=== PATIENT | male | born 1980 | race Caucasian/White ===

== ENCOUNTER → 2016-09-29 | Outpatient (CLI) | payer OTHER ==
[~2016-09-29] MED LIST: AUGMENTIN 875875 MG PO; DIFLUCAN200 MG PO; ONDANSETRON HCL4 M2 PO; PERCOCET 5-3251 EACH; PROMETHAZINE HC25 M2; TRAMADOL 50 MG50 MG PO
== END ==
LOC: RAD 02:04
DX: K63.1 Perforation of intestine (nontraumatic) (principal); Z93.3 Colostomy status

== ENCOUNTER 2016-10-06 06:42 | Inpatient (IN) | payer OTHER ==
[~2016-10-06] VITALS: Ht 175.3 cm; Wt 79.8 kg
[2016-10-06] VITALS (9 sets, daily range): BP systolic 134–164; BP diastolic 83–105
--- NOTE | ~2016-10-06 | O ---
[facility] [place] [address] OPERATIVE REPORT Name: BRI LARUEN Room #: 412-P ADM IN M.R.#: [id number] Admission: 10/06/16 Attend Phys: Ja La MD, Discharge: Date of : 84 Report #: [id number] THIS REPORT FOR: //name// CC: Zoya La DATE OF SERVICE: 10/06/2016 PREOPERATIVE DIAGNOSES: 1. Colostomy in place with desire for reversal. 2. Suspected intra-abdominal adhesions. POSTOPERATIVE DIAGNOSES: 1. Colostomy in place with desire for reversal. 2. Dense pelvic adhesions. 3. Incarcerated parastomal hernia. 4. Incisional ventral hernia. PROCEDURES PERFORMED: 1. Diagnostic laparoscopy converted to exploratory laparotomy. 2. Extensive lysis of adhesions lasting 135 minutes. 3. Segmental small bowel resection with [id number] functional end-to-end stapled reanastomosis. 4. Proctectomy. 5. Colostomy reversal with a stapled low colorectal anastomosis. 6. Mobilization of the splenic flexure. 7. Suture repair of an incarcerated parastomal hernia. 8. Suture repair of an incisional ventral hernia. 9. Placement of a topical wound VAC device (Prevena). 10. The Modifier 22 procedure for extreme difficulty of procedure secondary to the patient's significant low pelvic adhesions necessitating a greater than 2-hour lysis of adhesions after conversion to an open procedure as well as causing the necessity of a segmental bowel resection and a proctectomy as well as the low reanastomosis. This was in a male pelvis that was very narrow and difficult to access and caused the total operative time to be 3-1/2 hours as opposed to the usual 1- to 1-1/2-hour procedure. SURGEON: Ja La M.D. AUDIO VISUAL PROJECT MANAGER: Melecio Steven M.D. SECOND LEAD NEURODIAGNOSTIC TECHNOLOGIST: JIMMY Mariee. ANESTHESIA: General endotracheal anesthesia. ESTIMATED BLOOD LOSS: [address] [address] OPERATIVE REPORT Name: BRI LAUREN Room #: 412-P [facility] IN M.R.#: [id number] Admission: 10/06/16 Attend Phys: Ja La MD, Discharge: Date of : 84 Report #: [id number] COMPLICATIONS: None appreciated. SPECIMENS: 1. Segment of small bowel to pathology (mid ileum). 2. Rectum to pathology. 3. Colostomy to pathology. INDICATIONS: The patient is a 36-year-old male who is slightly greater than 6 months status post emergent exploratory laparotomy with sigmoid colectomy and Gilson's procedure for perforated sigmoid diverticulitis. The patient has done exceptionally well postoperatively, underwent a colonoscopy, both through his colostomy as well as up his rectal stump, with only a few diverticula right inside the colostomy as well as a firm stool ball in the rectal stump. The patient underwent a barium enema recently, which showed a normal rectal stump as well and underwent a full bowel prep with copious, clear output from his colostomy and tap water enemas via his rectum that ran clear. Indication therefore was for colostomy reversal with findings as indicated above. DESCRIPTION OF PROCEDURE: After explaining the risks, benefits and alternatives of the procedure with the patient in detail in the preoperative holding area and obtaining written consent, the patient was brought to the operating room and placed supine on the operating room table. After conducting a thorough timeout procedure verifying correct patient and procedure, the patient was given general endotracheal anesthesia. Once adequate anesthesia was obtained, his SCDs were hooked up to the pneumatic compression device, and he was given a preoperative dose of antibiotics in line with the SCIP protocol. The patient was then positioned in the low lithotomy position with his legs in the Yellofins stirrups, and I proceeded to use a 2-[address] a pursestring suture around his colostomy to prevent intra-procedural contamination. The patient's abdomen was then prepped and draped in the standard surgical sterile fashion and a Ray-Kathleen was placed over the colostomy with a 4 x 6 inch Tegaderm placed over the top of that. I began the procedure by anesthetizing the skin in the right upper quadrant in a midclavicular line in immediate subcostal location with 5 mL of 0.5% Marcaine with epinephrine. I created a small skin saul using #15 bladed scalpel at this location. A 5-mm Visiport was placed over 0 degree 5-mm laparoscope and was introduced through this incision site. Once intraabdominal placement was verified visually, the obturator for the trocar and laparoscope were both removed, and the abdomen was insufflated to 15 mmHg using carbon dioxide gas. The laparoscope was changed to a 5-mm 30-degree laparoscope, which was reintroduced through this trocar. The entire abdomen was evaluated to ensure no injury upon entry. We saw adhesions throughout the abdominal domain. However, the right lateral abdomen in the subxiphoid regions was devoid of adhesions. I therefore placed additional 5-mm trocars in the extreme right flank at the [address] [address] OPERATIVE REPORT Name: BRI LAUREN Room #: 412-P ADM IN Sophy#: [id number] Admission: 10/06/16 Attend Phys: Ja La MD, Discharge: Date of : 84 Report #: [id number] line lateral to the umbilicus and in the subxiphoid location. Both trocars were placed under direct vision after anesthetizing the skin at each location with 5 mL of 0.5% Marcaine with epinephrine and I created small skin nicks using #15 bladed scalpel. I now carried out a laparoscopic lysis of adhesions using EndoShears and Harmonic scalpel to skeletonize posterior aspect of the anterior abdominal wall. Through the course of taking down these adhesions, we stayed well away from bowel at all times. We saw evidence of an incisional ventral hernia approximately 2 x 2 cm in dimension around the umbilicus. Gentle traction was placed on the tissue around the colostomy site, and I was able to easily reduce a large amount of omentum incarcerated within an incisional ventral hernia in a parastomal location. We now placed the patient in steep Trendelenburg position with the left side elevated, and I proceeded to attempt to sweep the small bowel into the upper abdomen. One loop of small bowel was intimately plastered to the pelvis, likely to the staple line from the rectum, and numerous attempts at freeing this were performed with significant difficulty. Ultimately EndoShears were used to take down adhesions where it was welded to the pelvis, and the small bowel was extremely denuded at this location, but no overt enterotomy was made, and I was able to sweep the bowel into the upper abdomen. Evaluation of the rectal stump at this location showed that it was exquisitely plastered to the sacral promontory in the cul-de-sac, and after half an hour of evaluation, I was unable to elevate it whatsoever. Dr. Steven broke scrub and went down below and proceeded to use the rectal EEA sizers to intubate the rectal stump, and we were unable to elevate it whatsoever to perform an appropriate anastomosis. At this juncture, after full evaluation, I made the decision to convert to an open procedure, and using a #10 bladed scalpel, I created a longitudinal midline wound following his old incision site. Electrocautery was used to carry this down through skin and subcutaneous tissues to ensure hemostasis. Once I arrived upon the fascia, a finger was placed through the hernia defect, and I opened the entire fascial wound in a controlled fashion to prevent injury to the underlying structures from thermal burn. This allowed me to open the entire midline wound for full evaluation. At this juncture, I proceeded to run the small bowel from the ligament of Treitz distally in a [id number] fashion, taking down all interloop adhesions. We saw no evidence of pathology whatsoever with the exception of the one segment that was plastered low in the pelvis that was located at the mid ileum. As this was extremely denuded, thickened and firm with a narrowed lumen by palpation, I did elect to resect this. I made a window on either side of the mesentery using electrocautery and proceeded to transect the bowel using 2 separate firings of the GIAN blue load 75-mm stapler. The mesentery was removed with LigaSure impact device for hemostasis. The bowel loops were then aligned in a ftgg-jh-dlki functional end-to-end fashion, and a single suture of 3-0 PDS was placed on the antimesenteric aspects to hold them in alignment. Sterile blue towels were placed around the loops of bowel and I resected the antimesenteric corners of the staple lines with curved Kim scissors. Another firing of the GIAN blue load 75-mm stapler was carried out by passing each limb of the stapler down the enterotomies, clamping and firing to [facility] [address] [place] [address] OPERATIVE REPORT Name: BRI LAUREN Room #: 412-P [facility] IN [facility].#: [id number] Admission: 10/06/16 Attend Phys: Ja La MD, Discharge: Date of : 84 Report #: [id number] create the anastomosis. The common enterotomy was elevated with Allis clamps and was closed using a TX blue load 60 stapler. A #10 bladed scalpel was used to remove the excess anastomotic tissue. Finger palpation of the anastomosis showed it to be widely patent. I then placed a single suture of 3-0 PDS in the crotch of the staple line to act as an anti-tension stitch, and then utilized an additional 3-0 PDS suture in a standard running fashion to close the mesenteric defect. I did elect to oversew the TX staple line using several interrupted 3-0 PDS sutures in standard Lembert fashion. The bowel was then placed back in the abdomen; it was run one additional time in its entirety to ensure no pathology. We then turned our attention to evaluation of the rectal stump. We carried out an additional extensive lysis of adhesions to fully elevate the rectal stump using a combination of electrocautery and Metzenbaum scissor dissection. Ultimately, the staple line was able to be identified and elevated, and I was able to gain circumferential control of the rectal stump. There were so many adhesions that it caused the rectal stump to fold back on itself in an accordion style pattern, but at the completion of the lysis of adhesions, we had a straight rectal stump. Unfortunately, the distal aspect of the prior staple line on the proximal rectal stump was dusky, indurated and thickened, which was unsuitable for an anastomosis. As this was already below the sacral promontory, we were unable to perform an anastomosis on the anterior aspect of the rectum, and as such, I did elect to perform a proctectomy of this unsatisfactory proximal rectum. The perirectal mesentery was scored along its lateral aspects with electrocautery, and I was able to easily created a window in the mesorectum using a finger to pass through behind. I then utilized the contour stapler with a green load to staple off the rectum approximately 5 cm superior to the pelvic inlet. The LigaSure Impact device was used to transect the mesorectum of the resection specimen for hemostasis, and it was passed off the field. We had complete hemostasis at this juncture. Both the left and right ureters were identified, evaluated and uninjured throughout. The patient was exquisitely dehydrated at the outset of the procedure. However, he made significantly improved urine that was light yellow and clear throughout the case. Now that I had performed the proctectomy, I proceeded to take down the colostomy. Electrocautery was used to create an elliptical incision transversely around the colostomy site after removing the Tegaderm and Ray-Kathleen. Electrocautery was used to carry this incision down through skin and subcutaneous tissues for hemostasis until I arrived upon the level of the fascia. As the patient had a moderate-sized parastomal hernia, I was able to easily free the colostomy from its fascial attachments and delivered it through the wound. At this juncture, I cleaned off the colon proximal to the obvious diverticula and denuded colostomy and used electrocautery to create a window right next to colon. The mesentery at this location was taken down with LigaSure impact device. I then used the auto pursestring suture device to clamp around the colon at the desired anastomotic location. Curved Lowber scissors were [facility] [address] [place] [address] OPERATIVE REPORT Name: BRI LAUREN Room #: 412-P ADM IN [facility]ophy#: [id number] Admission: 10/06/16 Attend Phys: Ja La MD, Discharge: Date of : 84 Report #: [id number] used to resect the colostomy and was passed off the field. Allis clamps were now used to hold open the end of the colon, and it was sized using the EEA sizers. This showed that a 29 EEA anvil would be appropriate for this colon. I therefore placed the 29 EEA anvil into the open end of bowel and tied down the suture from the auto pursestring suture device, which held the colon tissue tight around the anvil post. The tissue appeared healthy with no significant fatty tissue overlying the actual colon at this juncture. The bowel was then placed back in the abdomen, and we evaluated whether we had enough length to reach the rectal stump as it was now going to be a low coloproctostomy. While it would reach at this location it was done so under signification tension, and as such, I did elect to perform a full mobilization of the splenic flexure. Electrocautery was used to take down the distal transverse colon around to the descending colon along the white line of Toldt. This allowed me to have the splenic flexure drop down to the mid abdomen with significant laxity of the bowel to where it would actually overlap the rectal stump so that when we performed the stapled anastomosis, it was done so under no tension whatsoever. Dr. Steven now proceeded to go back down below where he proceeded to size the rectal stump again using the EEA sizers. The patient's rectum would now handle a 29 EEA sizer with ease all the way to the distal aspect of the staple line. The rectal tissue at this juncture appeared completely healthy with no induration, ischemia or denuded tissue. The 29 EEA stapler was then placed in the rectum and the spike was delivered through the middle portion of the staple line. I then mated the spike with the anvil, and we proceeded to ratchet down the EEA stapler ensuring that there was no twisting to the descending colon. The stapler was then clamped and fired completing the stapled anastomosis, which again was done so in a tension free fashion. The stapler was removed and the anastomotic rings were evaluated and had 2 complete beefy anastomotic donuts. The rigid proctoscope was now placed into the rectum and the pelvis was filled with normal saline. I clamped the bowel approximately 10 cm proximal to the anastomosis and the rectum was fully inflated, and we performed 3 leak tests, which showed excellent tidaling of the fluid with no evidence of bubbling whatsoever, thereby signifying a negative leak test on 3 occasions. The irrigant was suctioned out completely and the pelvis was dry. I did elect to use 10 mL of Tisseel to coat the entirety of the anastomotic staple line circumferentially low in the pelvis. The omentum was then placed over the small bowel and into the pelvis to separate out the small bowel anastomosis from the coloproctostomy. The abdomen was irrigated and the irrigant ran clear. It was suctioned dry. I used 3 pieces of Interceed and 2 pieces of a Seprafilm to help prevent future adhesions throughout the abdomen. I now proceeded to close the parastomal hernia that was incarcerated at the outset of the procedure in 2 layers using #1 PDS suture in a standard running fashion for the internal most layer. The knot was then buried with a 3-0 PDS suture to imbricate the peritoneum over the suture to prevent it poking the bowel. I then used another #1 PDS suture in a standard running fashion for the anterior fascia. The colostomy site was then copiously irrigated and closed with jay jay. I then proceeded to close the longitudinal midline wound using a running looped #1 PDS [facility] [address] [place] [address] OPERATIVE REPORT Name: BRI LAUREN Room #: 412-P [facility] IN M.R.#: [id number] Admission: 10/06/16 Attend Phys: Ja La MD, Discharge: Date of : 84 Report #: [id number] suture from inferior to superior aspects. This effectively performed a suture repair of the incisional ventral hernia around the umbilicus. This suture was run two-thirds of the way up and an additional looped #1 PDS suture was started in subxiphoid location and run inferiorly to where the sutures met, and they were tied together two-thirds of the way up. The midline wound was copiously irrigated as well. The midline wound was then closed with skin jay jay as were the 2 prior remaining laparoscopic trocar sites. A Prevena topical wound VAC device was then placed over the midline wound to prevent any potential wound infection. At the end of the lengthy procedure, all instrument, needle and sponge counts were correct. The patient tolerated the procedure without incident, was awakened in the operating room and transitioned to the recovery room in stable condition with no apparent complications. <ELECTRONICALLY SIGNED> By: Ja La MD, FACS 10/07/16 [id number] Ja La MD, FACS /nt
--- NOTE | ~2016-10-06 | S ---
[facility] [address] [place] [address] SURGICAL PATH RPT PROCEDURE Name: RAVI ECHEVERRIA Room #: 412-P ADM IN M.R.#: [id number] Admission: 10/06/16 Date of : 84 Discharge: Report #: [id number] Path Case #: [id number] PATHOLOGY REPORT COLLECTION DATE: 10/06/2016 RECEIVED DATE: 10/06/2016 SUBMITTING PHYS: Dr. Ja La OTHER PHYS: Dr. Melecio Edwards SPECIMEN(S) RECEIVED: A.Mid ileum B.Rectum C.Colostomy * * * * * * * * * * * * FINAL DIAGNOSIS: A. Small bowel, mid ileum, resection: - Congested small bowel mucosa. - No mucosal abnormalities present. - Margins of resection viable. B. Large intestine, rectum, resection: - Patchy transmural lymphoid aggregates along with two foci showing abscess formation. - No diverticuli present. - Margins of resection unremarkable and viable. C. Colostomy, reversal: - Ulceration along with reactive changes between large intestine and squamous epithelium, consistent with colostomy site. - Negative for dysplasia or malignancy. - Two reactive lymph nodes. (IUV:csd; d/t: 10/08/2016) PATHOLOGIST: Dena Molina M.D. REPORT ELECTRONICALLY SIGNED BY: Dena Molina M.D. DATE/TIME: 10/08/2016 15:46 * * * * * * * * * * * * GROSS PATHOLOGY: A. The specimen is received in formalin, labeled "Ravi Echeverria and mid ileum." Received is an unoriented segment of small bowel measuring 8.2 cm in length and 2.3 cm in average diameter with up to 2.0 cm in length of attached mesenteric fat. The specimen displays 2 stapled margins, which grossly appear viable. The serosa is dusky, dark red, and displays multiple adhesions. The specimen is opened along the anti-mesenteric line to reveal burrows-green mucosa with a [facility] [address] [place] [address] SURGICAL PATH RPT PROCEDURE Name: RAVI ECHEVERRIA NAUN Room #: 412-P ADM IN M.R.#: [id number] Admission: 10/06/16 Date of : 84 Discharge: Report #: [id number] Path Case #: [id number] focal area of hemorrhage and the usual architectural folds. No mucosal masses or lesions are grossly identified. The wall is uniform and measures 0.2 cm in thickness. Brief dissection of the mesenteric fat reveals no gross identifiable lymph nodes. Shipping Coordinator sections are submitted as follows: A1-A2 undesignated margins, en face A3 mill representative sections of small bowel B. The specimen is received in formalin, labeled "Ravi Echeverria and rectum." Received is an unoriented segment of colon measuring 2.8 cm in length and 3.2 cm in average diameter with up to 1.2 cm in length of attached pericolic fat. The specimen displays 2 stapled margins, which grossly appear viable. The serosa is dusky, dark red, and displays multiple adhesions. The specimen is opened to reveal pink-burrows mucosa with the usual architectural folds. No mucosal masses or lesions are grossly identified. The wall is uniform and measures 0.5 cm in thickness. Brief dissection of the pericolic fat reveals no gross identifiable lymph nodes. Shipping Coordinator sections are submitted as follows: B1-B2 undesignated margins, en face B3 mill representative sections from colon C. The specimen is received in formalin, labeled "Ravi Echeverria and colostomy." Received is an unoriented segment of bowel measuring 3.7 cm in length and 2.7 cm in average diameter with up to 3.5 cm in length of attached fat. The specimen displays one unstapled/opened end. This end is inked blue. The opposing end displays a 4.5 x 2.7 cm skin ellipse with a central 2.7 x 2.5 cm stoma. The stomal mucosa is burrows and wrinkled. The bowel serosa is dusky, dark red, and displays multiple adhesions. The specimen is opened to reveal pink-burrows mucosa with the usual architectural folds. No mucosal masses or lesions are grossly identified. The wall is uniform and measures 0.4 cm in thickness. Brief dissection of the fat reveals several pink-burrows lymph nodes ranging from 0.2-0.5 cm in greatest dimension. Shipping Coordinator sections are submitted as follows: C1 unstapled/opened margin, uninvolved C2 longitudinal sections of colon to include stomal end (opposing margin) C3 several intact and possible lymph nodes (TTL; 10/07/2016) CLINICAL HISTORY: Colostomy in place INITIAL CPT CODE(S): A; 30007 B; 36065 C; 43821 Professional services performed by [facility] at [address] [address] SURGICAL PATH RPT PROCEDURE Name: RAVI ECHEVERRIA Room #: 412-P ADM IN M.R.#: [id number] Admission: 10/06/16 Date of : 84 Discharge: Report #: [id number] Path Case #: [id number] [facility] [address] [place] [address] Technical services performed by [facility] at [address] [place] [address], [place] [address]. [facility] [address] [place] [address] PHONE: [phone] DIRECTOR: Davide Kirkland M.D. * * * END OF REPORT * * *
[2016-10-06 13:58] LABS: URINE BLOOD NEGATIVE (Negative); URINE COLOR YELLOW; URINE GLUCOSE-RANDOM* NEGATIVE (Negative); URINE KETONES 1+ (Negative); URINE LEUKOCYTES-REFLEX NEGATIVE (Negative); URINE PROTEIN (DIPSTICK) TRACE (Negative); URINE SPECIFIC GRAVITY 1.015 (1.003-1.035); URINE UROBILINOGEN 0.2 E.U./dl (0.2-1.0)
[2016-10-06 14:03] LABS: URINE BILIRUBIN NEGATIVE (Negative)
[2016-10-07] VITALS: BP 134/85
[2016-10-07 03:30] VITALS: BP 134/83
[2016-10-07 06:13] LABS: HEMATOCRIT 44.2 % (42.0-52.0); HEMOGLOBIN 15.4 gm/dL (14.0-18.0); MCH 32.1 pg (26.0-34.0); MCHC 34.8 g/dL (28.0-37.0); MCV 92.2 fL (80.0-100.0); RBC 4.79 mil/uL (4.50-6.00); RDW 13.1 % (10.5-14.5); WBC 9.3 thou/uL (4.0-11.0)
[2016-10-07 06:25] LABS: POTASSIUM 3.7 mmol/L (3.5-5.1)
[2016-10-07 08:42] VITALS: BP 141/79
[2016-10-07 16:22] VITALS: BP 144/88
[2016-10-07 20:47] VITALS: BP 147/88
[2016-10-07 23:44] VITALS: BP 129/76
[2016-10-08 03:25] VITALS: BP 133/85
[2016-10-08 07:17] LABS: ABSOLUTE NEUTROPHILS 7.9 thou/uL (1.4-8.2); BASOPHILS 0.5 % (0.0-2.0); EOSINOPHILS 3.2 % (0.0-3.0); HEMATOCRIT 40.5 % (42.0-52.0); HEMOGLOBIN 14.1 gm/dL (14.0-18.0); LYMPHOCYTES 12.2 % (24.0-44.0); MANUAL DIFF NO; MCH 32.3 pg (26.0-34.0); MCHC 34.9 g/dL (28.0-37.0); MCV 92.6 fL (80.0-100.0); MONOCYTES 7.7 % (1.0-8.0); PLATELET COUNT 165 thou/uL (150-400); POLYS 76.4 % (36.0-66.0); RBC 4.38 mil/uL (4.50-6.00); RDW 13.3 % (10.5-14.5); WBC 10.4 thou/uL (4.0-11.0)
[2016-10-08 07:26] LABS: CALCIUM 8.7 mg/dL (8.5-10.1); CREATININE 0.9 mg/dL (0.7-1.3); POTASSIUM 3.9 mmol/L (3.5-5.1)
[2016-10-08 08:52] VITALS: BP 150/93
[2016-10-08 12:05] VITALS: BP 127/84
[2016-10-08 16:00] VITALS: BP 131/85
[2016-10-08 19:17] VITALS: BP 141/88
[2016-10-08 23:58] VITALS: BP 136/86
[2016-10-09 04:00] VITALS: BP 151/69
[2016-10-09 05:13] LABS: CREATININE 1.1 mg/dL (0.7-1.3); POTASSIUM 3.8 mmol/L (3.5-5.1)
[2016-10-09 05:25] LABS: ABSOLUTE NEUTROPHILS 7.3 thou/uL (1.4-8.2); BASOPHILS 0.5 % (0.0-2.0); EOSINOPHILS 4.7 % (0.0-3.0); HEMATOCRIT 40.3 % (42.0-52.0); HEMOGLOBIN 13.8 gm/dL (14.0-18.0); LYMPHOCYTES 14.6 % (24.0-44.0); MCH 32.4 pg (26.0-34.0); MCHC 34.3 g/dL (28.0-37.0); MCV 94.4 fL (80.0-100.0); MONOCYTES 7.4 % (1.0-8.0); PLATELET COUNT 177 thou/uL (150-400); POLYS 72.8 % (36.0-66.0); RBC 4.27 mil/uL (4.50-6.00); RDW 13.2 % (10.5-14.5); WBC 10.1 thou/uL (4.0-11.0)
[2016-10-09 05:55] LABS: MANUAL DIFF NO
[2016-10-09 08:46] VITALS: BP 141/81
[2016-10-09 15:46] VITALS: BP 138/94
[2016-10-09 20:31] VITALS: BP 142/93
[2016-10-09 23:32] VITALS: BP 127/88
[2016-10-10 04:13] LABS: HEMATOCRIT 38.6 % (42.0-52.0); HEMOGLOBIN 13.2 gm/dL (14.0-18.0); MCHC 34.2 g/dL (28.0-37.0); MCV 93.6 fL (80.0-100.0); RBC 4.12 mil/uL (4.50-6.00); RDW 13.1 % (10.5-14.5)
[2016-10-10 04:40] LABS: CALCIUM 9.2 mg/dL (8.5-10.1); POTASSIUM 3.9 mmol/L (3.5-5.1)
[2016-10-10 04:52] VITALS: BP 132/98
[2016-10-10 07:53] VITALS: BP 138/92
[2016-10-10 16:21] VITALS: BP 138/86
[2016-10-10 20:00] VITALS: BP 154/80
[2016-10-11 03:48] LABS: HEMATOCRIT 39.8 % (42.0-52.0); HEMOGLOBIN 13.7 gm/dL (14.0-18.0); MCHC 34.5 g/dL (28.0-37.0); MCV 92.7 fL (80.0-100.0); RBC 4.3 mil/uL (4.50-6.00); RDW 12.9 % (10.5-14.5); WBC 8.7 thou/uL (4.0-11.0)
[2016-10-11 06:18] VITALS: BP 147/93
[2016-10-11 06:29] LABS: CALCIUM 9.1 mg/dL (8.5-10.1); CREATININE 0.9 mg/dL (0.7-1.3); POTASSIUM 4.2 mmol/L (3.5-5.1)
[2016-10-11 07:30] VITALS: BP 146/73
[2016-10-11 19:34] VITALS: BP 147/99
[2016-10-12 03:04] VITALS: BP 142/95
[2016-10-12 05:06] LABS: ABSOLUTE NEUTROPHILS 4.9 thou/uL (1.4-8.2); BASOPHILS 0.6 % (0.0-2.0); EOSINOPHILS 5.7 % (0.0-3.0); HEMATOCRIT 41.6 % (42.0-52.0); HEMOGLOBIN 14.4 gm/dL (14.0-18.0); MCH 32.4 pg (26.0-34.0); MCHC 34.7 g/dL (28.0-37.0); MCV 93.5 fL (80.0-100.0); MONOCYTES 11.8 % (1.0-8.0); PLATELET COUNT 280 thou/uL (150-400); POLYS 57.9 % (36.0-66.0); RBC 4.45 mil/uL (4.50-6.00); WBC 8.4 thou/uL (4.0-11.0)
[2016-10-12 05:12] LABS: MANUAL DIFF NO
[2016-10-12 05:14] LABS: CALCIUM 9.6 mg/dL (8.5-10.1); MAGNESIUM 1.8 mg/dL (1.8-2.4)
[2016-10-12 07:51] VITALS: BP 147/89
[2016-10-12 16:04] VITALS: BP 146/82
[2016-10-12 20:00] VITALS: BP 124/81
[2016-10-13 04:00] VITALS: BP 158/93
[2016-10-13 06:00] LABS: HEMATOCRIT 41.2 % (42.0-52.0); HEMOGLOBIN 14.4 gm/dL (14.0-18.0); MCH 32.5 pg (26.0-34.0); MCV 92.8 fL (80.0-100.0); RBC 4.44 mil/uL (4.50-6.00); RDW 12.9 % (10.5-14.5); WBC 9.8 thou/uL (4.0-11.0)
[2016-10-13 06:13] LABS: CALCIUM 9.5 mg/dL (8.5-10.1); CREATININE 0.9 mg/dL (0.7-1.3); POTASSIUM 4.3 mmol/L (3.5-5.1)
[2016-10-13 08:19] VITALS: BP 146/99
[2016-10-13] MEDS ORDERED: METOCLOPRAMID5 MG/ML PO (09:38)
[2016-10-13 16:33] VITALS: BP 146/99
== END 2016-10-13 16:59 | disposition home or self-care (01) | DRG 330 ==
LOC: 4N 06:42 → TBA 06:42 → PRE 09:30 → 4N 18:24 → 5S 10-10 17:44
PROVIDERS: Surgery
PROC: 0WQF0ZZ Repair Abdominal Wall, Open Approach (ICD-10-PCS; principal; 2016-10-06)
PROC: 0DBP0ZZ Excision of Rectum, Open Approach (ICD-10-PCS; principal; 2016-10-06)
PROC: 0DN80ZZ Release Small Intestine, Open Approach (ICD-10-PCS; principal; 2016-10-06)
PROC: 0DB80ZZ Excision of Small Intestine, Open Approach (ICD-10-PCS; principal; 2016-10-06)
DX: Z43.3 Encounter for attention to colostomy (principal); K43.3 Parastomal hernia with obstruction, without gangrene; K57.92 Diverticulitis of intestine, part unspecified, without perforation or abscess without bleeding; F17.210 Nicotine dependence, cigarettes, uncomplicated; J45.909 Unspecified asthma, uncomplicated; I10 Essential (primary) hypertension; K43.2 Incisional hernia without obstruction or gangrene; Z88.2 Allergy status to sulfonamides; Z90.49 Acquired absence of other specified parts of digestive tract
CPT/HCPCS: 10785; 10790; 50010; 50093; 50101; 50249; 50290; 50386; 50455; 50555; 50953; 50962; 51398; 51412; 51435; 51437; 51489; 51708; 51714; 52265; 53307; 55075; 56462; 56525; 56526; 56527; 56530; 56639; 56753; 57092; 62110; 62900; 70005